=== PATIENT | male | born 1960 | race African-American/Black ===

== ENCOUNTER 2023-01-31 20:32 | Emergency (ER) | payer MEDICARE ==
[~2023-01-31] VITALS: Ht 167.6 cm; Wt 90.7 kg
[2023-01-31 21:18] VITALS: BP 153/89; PULSE 91; RESP 20; TEMP 98.9; O2SAT 98
[2023-01-31] MEDS ORDERED: BENZ200C52 MT (21:34)
== END 2023-02-01 00:22 | disposition home or self-care (01) ==
LOC: ER 20:32
DX: R05.9 Cough, unspecified (principal); I10 Essential (primary) hypertension
CPT/HCPCS: 71045; 99283